=== PATIENT | male | born 1975 | race Hispanic/Latino ===

== ENCOUNTER 2024-03-05 12:57 | Emergency (ER) | payer OTHER ==
[2024-03-05] MEDS ORDERED: Ibuprofen 800 MG TAB ONE (13:22)
== END 2024-03-05 13:26 ==
LOC: NAV ERS 12:57
DX: S86.011A Strain of right Achilles tendon, initial encounter (principal); I10 Essential (primary) hypertension; Z87.891 Personal history of nicotine dependence; X50.1XXA Overexertion from prolonged static or awkward postures, initial encounter; Y93.73 Activity, racquet and hand sports
CPT/HCPCS: 99283